=== PATIENT | female | born 1985 | race African-American/Black ===

== ENCOUNTER 2021-07-05 08:16 | Emergency (ER) | payer OTHER ==
[2021-07-05 08:30] VITALS: BP 106/70; PULSE 96; TEMP 98; BMI 38.2
[2021-07-05] MEDS ORDERED: KETOROLAC TROMETHAMINE 15 MG/ML VIAL IM ONE (08:55)
[2021-07-05] MEDS ORDERED: KETOROLAC TROMETHAMINE 30 MG/1 ML VIAL ONE (09:03)
== END 2021-07-05 11:07 | disposition home or self-care (01) ==
LOC: JER 08:16 → JERFT 08:16
PROC: 3E023GC Introduction of Other Therapeutic Substance into Muscle, Percutaneous Approach (ICD-10-PCS; principal; 2021-07-05)
PROC: 0H9BXZZ Drainage of Right Upper Arm Skin, External Approach (ICD-10-PCS; principal; 2021-07-05)
DX: L02.411 Cutaneous abscess of right axilla (principal)
CPT/HCPCS: 87070; 87076; 87205; 99284-25

== ENCOUNTER 2021-07-07 09:11 | Emergency (ER) | payer OTHER ==
[2021-07-07 09:24] VITALS: BP 110/78; PULSE 80; TEMP 98; BMI 38.2
== END 2021-07-07 09:52 | disposition home or self-care (01) ==
LOC: JERFT 09:11
DX: L02.411 Cutaneous abscess of right axilla (principal)
CPT/HCPCS: 99283-25

== ENCOUNTER 2022-04-05 06:40 | Emergency (ER) | payer OTHER ==
[2022-04-05 06:57] VITALS: BP 139/82; PULSE 78; TEMP 98.4; BMI 29.1
== END 2022-04-05 07:00 | disposition left against medical advice (07) ==
LOC: JER 06:40
DX: Z20.822 Contact with and (suspected) exposure to COVID-19 (principal)
CPT/HCPCS: 99281-25